=== PATIENT | female | born 1985 | race African-American/Black ===

== ENCOUNTER 2021-10-09 11:57 | Emergency (ER) | payer MEDICAID, OTHER ==
[~2021-10-09] VITALS: Ht 167.6 cm; Wt 88.0 kg
[~2021-10-09 11:57] MED LIST: FERR325C PO; PRENATAL ONE T1 EACH PO
[2021-10-09 12:41] VITALS: BP 148/80
== END 2021-10-09 19:28 | disposition left against medical advice (07) ==
LOC: ER 13:03
DX: R10.31 Right lower quadrant pain (principal); R11.2 Nausea with vomiting, unspecified; Z53.21 Procedure and treatment not carried out due to patient leaving prior to being seen by health care provider
CPT/HCPCS: 76830; 76856

== ENCOUNTER 2023-08-19 20:49 | Emergency (ER) | payer MEDICAID, OTHER ==
[~2023-08-19] VITALS: Ht 170.2 cm; Wt 87.2 kg
[2023-08-19 21:04] VITALS: BP 123/78; PULSE 104; RESP 18; TEMP 98.4; O2SAT 100
== END 2023-08-20 01:15 | disposition left against medical advice (07) ==
LOC: ER 20:49
DX: R58 Hemorrhage, not elsewhere classified (principal); Z53.21 Procedure and treatment not carried out due to patient leaving prior to being seen by health care provider; Y08.89XA Assault by other specified means, initial encounter; Y93.89 Activity, other specified; Y92.89 Other specified places as the place of occurrence of the external cause; Y99.8 Other external cause status
CPT/HCPCS: 81025; 99281